=== PATIENT | female | born 1950 | race Caucasian/White ===

== ENCOUNTER 2016-10-01 02:36 | Emergency (ER) | payer OTHER ==
[~2016-10-01] VITALS: Ht 165.1 cm; Wt 58.5 kg
[~2016-10-01 02:36] MED LIST: HYDCR1 TD
[2016-10-01 02:42] VITALS: TEMP 36.5; Ht 165.1 cm; Wt 58.5 kg
--- NOTE | 2016-10-01 03:41 | EMERGENCY ROOM VISIT NOTE ---
History Report prepared by Blossom: Jarrett Marcano Under the Supervision of: Dr. Gladys Pittman D.O. First contact with patient: 03:11 Chief Complaint: SKIN PROBLEM Stated Complaint: POISON History of Present Illness The patient is a 66 year old female who presents to the Emergency Room with complaints of a worsening skin rash on her bilateral arms and neck that began last week. She rates her current pain a 10/10 in severity. She believes that it could be poison beatriz. At this time, she was digging in her garden when the rash began. She has been using calamine lotion with no relief. She states that it is worsening. It has spread onto her neck. She has not been taking Benadryl. She denies any shortness of breath. Source of History: patient Onset: 1 week ago Position: arm (bilateral) Symptom Intensity: moderate Quality: other (Rash) Timing: worsening Associated Symptoms: No SOB Note: She has associated pain with the rash. It also has spread to her neck and behind her ears. Review of Systems See HPI for pertinent positives & negatives. A total of 10 systems reviewed and were otherwise negative. Past Medical & Surgical Medical Problems: (1) Hyperlipidemia Family History Omitted secondary to age. Social History Smoking Status: Never Smoker Smokeless Tobacco Use: No Alcohol Use: none Drug Use: none Marital Status: Housing Status: lives with significant other Occupation Status: unemployed Current/Historical Medications Scheduled PRN Meclizine Hcl (Meclizine Hcl), 25 MG PO HS PRN for UNDECIDED Naproxen (Naproxen), 1 TAB PO BID PRN for Pain Naproxen (Aleve), 440 MG PO Q12 PRN for Pain Promethazine Hcl (Phenergan), 25 MG PO HS PRN for Nausea Allergies Coded Allergies: Codeine (Verified Allergy, Intermediate, N/V, 06/09/14) Penicillins (Verified Allergy, Unknown, UNKNOWN, 06/09/14) Physical Exam Vital Signs Date Time Temp Pulse Resp B/P (MAP) Pulse Ox O2 Delivery O2 Flow Rate FiO2 10/01/16 04:18 63 20 104/73 96 10/01/16 02:42 36.5 67 20 110/64 95 Room Air Physical Exam HEENT: Head - normocephalic and atraumatic Pupils are equal, round, and reactive to light. Extraocular eye muscles are intact, and sclera are anicteric. Nose - moist nasal mucosa without discharge. Mouth - moist buccal mucosa. Oropharynx is nonerythematous and there is no tonsillar exudate or edema noted. Neck: Supple; no cervical lymphadenopathy. There were some pustules on the lateral and posterior aspect of the neck consistent with rhuse dermatitis. Heart: Regular rate and rhythm. There is a normal S1 and S2 with no murmurs, clicks, or gallops appreciated. Lungs: Clear to auscultation bilaterally with no wheezes, rales, or rhonchi. Abdomen: Soft, completely nontender, nondistended, with good bowel sounds. There are no palpable pulsatile masses or hepatosplenomegaly. There is no guarding, rigidity, or rebound noted. Extremities: No evidence of cyanosis, clubbing, or edema. There are easily palpable peripheral pulses. Skin: warm and dry with good turgor. Pustules behind both ears, on the neck, and bilateral ventral aspects of the upper extremities consistent with poison beatriz. Medical Decision & Procedures Medications Administered Medications (Trade) Dose Ordered Sig/Olinda Route Start Time Stop Time Status Last Admin Dose Admin Dexamethasone Sodium Phosphate (Decadron Inj) 10 mg NOW ONCE IM 10/01/16 03:45 10/01/16 03:46 DC 10/01/16 04:03 10 MG Diphenhydramine HCl (Benadryl Cap) 25 mg NOW ONCE PO 10/01/16 03:45 10/01/16 03:46 DC 10/01/16 04:02 25 MG Procedure Benadryl Cap 25 mg PO Decadron Inj 10 mg IM ED Course 0311: Past medical records reviewed. The patient was evaluated in room B12. A complete history and physical exam was performed. 0345: Ordered Benadryl Cap 25 mg PO, Decadron Inj 10 mg IM 0420: Upon reevaluation, the patient is resting. I discussed findings and results with her. She verbalized agreement of the treatment plan. She was discharged home. Medical Decision The patient is a 66 year old female who presents to the ED with a skin rash. Differential diagnosis includes allergic reaction, dermatitis, rhus dermatitis, and urticaria. I attest that I have personally reviewed the patient's current medication list. Patient was found to have normal blood pressure on screening and does not require follow-up. On physical exam, the patient has evidence of poison beatriz on her arms and about her neck. She was prescribed a tapering dose of prednisone but was not taking it correctly. She was given a dose of Decadron here in the emergency department as an IM injection. She will then start taking the prednisone in the tapering fashion that was directed. We spent some time talking about how poison beatriz spreads. Impression Primary Impression: Poison beatriz dermatitis Scribe Attestation The scribe's documentation has been prepared under my direction and personally reviewed by me in its entirety. I confirm that the note above accurately reflects all work, treatment, procedures, and medical decision making performed by me. Departure Information Dispostion Home / Self-Care Referrals Fady James M.D. (PCP) Forms HOME CARE DOCUMENTATION FORM, IMPORTANT VISIT INFORMATION, WORK / SCHOOL INSTRUCTIONS Patient Instructions My [facility], Poison Beatriz [place] [facility] Additional Instructions Limit exposure to leaves of poison beatriz plants. Benadryl - 25mg every 6 hours Take steroids as directed.
[2016-10-01] MEDS ORDERED: DEXAMETHASONE SOD INJ 10 MG/ML VIAL IM ONE (03:45)
[2016-10-01] MEDS ORDERED: MECL1TAB42 PO (03:47)
[2016-10-01] MEDS ORDERED: NAPR375T3 PO (03:48)
[2016-10-01] MEDS ORDERED: PROM25TA9 PO (03:49)
[2016-10-01] MEDS ORDERED: NAPR1TAB9 PO (03:50)
[2016-10-01 04:18] VITALS: BP 104/73; PULSE 63; O2SAT 96
== END 2016-10-01 04:19 | disposition home or self-care (01) ==
LOC: C.EDB 02:37
DX: L23.7 Allergic contact dermatitis due to plants, except food (principal); E78.5 Hyperlipidemia, unspecified

== ENCOUNTER → 2017-05-06 | Outpatient (CLI) | payer OTHER ==
[~2017-05-06] MED LIST changes: -HYDCR1 TD; +MECL1TAB42 PO; +NAPR-1221 PO; +NAPR1TAB9 PO; +PROM25TA9 PO
--- NOTE | 2017-05-06 14:59 | MAMMOGRAPHY REPORT ---
BILATERAL DIGITAL SCREENING MAMMOGRAM TOMOSYNTHESIS WITH CAD: 05/06/2017 CLINICAL HISTORY: Routine screening. TECHNIQUE: Breast tomosynthesis in addition to standard 2D mammography was performed. Current study was also evaluated with a Computer Aided Detection (CAD) system. COMPARISON: Comparison is made to exams dated: 12/19/2015 mammogram, 12/28/2013 mammogram, 03/30/2012 mammogram - [facility], 11/21/2008, and 06/28/2007. BREAST COMPOSITION: There are scattered areas of fibroglandular density in both breasts. FINDINGS: No suspicious masses, calcifications, or areas of architectural distortion are noted in ei ther breast. There has been no significant interval change compared to prior exams. Benign-appearing mass in the right upper outer quadrant and asymmetry in the left lateral breast are stable compared to multiple prior exams. IMPRESSION: ACR BI-RADS CATEGORY 2: BENIGN There is no mammographic evidence of malignancy. A 1 year screening mammogram is recommended. The pa tient will receive written notification of the results. Approximately 10% of breast cancers are not detected with mammography. A negative mammographic report should not delay biopsy if a clinically suggestive mass is present. Kareen Chavarria M.D. ah/:05/06/2017 12:22:00 Taxation Economist: Cayla LOUISE(R)(M), [facility] letter sent: Normal 1/2 BI-RADS Code: ACR BI-RADS Category 2: Benign
== END | disposition home or self-care (01) ==
LOC: C.MAMM 09:15
PROVIDERS: ATTEND Internal Medicine
DX: Z12.31 Encounter for screening mammogram for malignant neoplasm of breast (principal)

== ENCOUNTER 2017-07-19 13:32 | Emergency (ER) | payer OTHER ==
[~2017-07-19] VITALS: Ht 165.1 cm; Wt 58.0 kg
[2017-07-19 13:46] VITALS: TEMP 36.7; Ht 165.1 cm; Wt 58.0 kg
[2017-07-19] MEDS ORDERED: SODIUM CHLORIDE 0.9% 1000ML 1,000 ML IV STA (13:57)
[2017-07-19 14:20] LABS: BASO % 0.4 %; BASO ABS # 0.03 K/uL (0-0.2); EOS % 1.2 %; HEMATOCRIT 41.4 % (37-47); HEMOGLOBIN 14.2 g/dL (12.0-16.0); IG# 0.02 K/uL (0.00-0.02); LYMPH % 26.4 %; LYMPH ABS # 2.26 K/uL (1.2-3.4); MEAN CELL VOLUME 89.2 fL (80-100); MEAN CORPUSCULAR HEMOGLOBIN 30.6 pg (25-34); MEAN CORPUSCULAR HGB CONC 34.3 g/dl (32-36); MEAN PLATELET VOLUME 9.2 fL (7.4-10.4); MONO % 6.9 %; MONO ABS # 0.59 K/uL (0.11-0.59); NEUT % 64.9 %; NEUT ABS # 5.57 K/uL (1.4-6.5); PLATELET COUNT 215 K/uL (130-400); RED CELL DISTRIBUTION WIDTH CV 12.1 % (11.5-14.5); RED CELL DISTRIBUTION WIDTH SD 38.9 fL (36.4-46.3); WHITE BLOOD COUNT 8.57 K/uL (4.8-10.8)
[2017-07-19] MEDS ORDERED: NEOMYCIN/POLYMYX/HYDROCORT OT SOLN 10 ML BTL OT ONE (14:30)
[2017-07-19 14:35] LABS: ALBUMIN 3.8 gm/dl (3.4-5.0); CALCIUM 8.8 mg/dl (8.5-10.1); CREATININE 0.66 mg/dl (0.60-1.20); POTASSIUM 3.9 mmol/L (3.5-5.1)
[2017-07-19 14:38] LABS: TOTAL PROTEIN 7.3 gm/dl (6.4-8.2)
[2017-07-19] MEDS ORDERED: OPTIRAY 320 IV PRN (14:45)
--- NOTE | 2017-07-19 15:52 | DIAGNOSTIC IMAGING REPORT ---
ABD/PELVIS IV CONTRAST ONLY CT DOSE: 269.68 mGy.cm HISTORY: Pain lower abd pain TECHNIQUE: Multiaxial CT images of the abdomen and pelvis were performed following the use of intravenous contrast. A dose lowering technique was utilized adhering to the principles of ALARA. COMPARISON STUDY: None. FINDINGS: The lung bases are clear. The liver, spleen, gallbladder, pancreas, kidneys, and adrenal glands are within normal limits. No bowel wall thickening or obstruction. The pelvic organs are unremarkable. No suspicious lytic or blastic osseous lesions. 1 cm right renal cyst. No evidence for hydronephrosis. Nonobstructive bowel pattern. Possible mild wall thickening versus technical artifact of the cecum. Normal appendix. Bilateral ovarian cysts. These measure 2.6 cm on the left and 2.0 cm on the right. Bladder is midline. There are no contained calcifications. IMPRESSION: 1. Bilateral ovarian cysts. 2. These are considered abnormal for age 3. Mild wall thickening versus technical artifact due to incomplete distention of the cecum. Colonoscopy is suggested. The above report was generated using voice recognition software. It may contain grammatical, syntax or spelling errors. Electronically signed by: Spencer Schaefer M.D. 07/19/2017 3:50 PM Dictated Date/Time: 07/19/2017 3:38 PM
[2017-07-19 17:01] VITALS: BP 129/78; PULSE 75; O2SAT 98
--- NOTE | 2017-07-19 17:59 | EMERGENCY ROOM VISIT NOTE ---
History Report prepared by Blossom: Epifanio Orellana Under the Supervision of: Dr. Ranjan Pierre M.D. First contact with patient: 13:57 Chief Complaint: DIARRHEA Stated Complaint: PROBLEMS WITH BOWELS AND LEGS Nursing Triage Summary: Patient reports diarrhea for the past 3 weeks. "I have a family history of colon cancer so I am just worried it's something more severe. I have also been having leg cramps but worsened yesterday." Denies abdominal pain. History of Present Illness The patient is a 66 year old female who presents to the Emergency Room with complaints of persistent diarrhea, which she has been experiencing for the past 3 weeks. The patient states that her diarrhea has actually improved as she used to have 5-6 bouts per day, and is only having 2-3 now. She describes the diarrhea as "very loose" and denies any melena. She is not having any abdominal pain. The patient notes that she cannot control her bowel movements, and needs to go immediately when the urge arouses. The patient denies any recent travel, antibiotic use, or unusual food intake. She has not noticed anything that improves/worsens her symptoms. She does note that her ears have been bothering her and she has had some discharge from both sides but the right is worse. This is been going on for many weeks. There has not been any associated LOC, headache, fevers, chills, diaphoresis, visual changes, neck pain, chest pain, breathing difficulties, nausea, abdominal pain, back pain, urinary symptoms, numbness, weakness, lymphadenopathy, rash, or other complaints. 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 A total of ten systems were reviewed and were otherwise negative. Past Medical & Surgical Medical Problems: (1) Hyperlipidemia Family History Cancer Heart disease Lung disease Social History Smoking Status: Never Smoker Alcohol Use: none Drug Use: none Marital Status: Housing Status: lives with significant other Occupation Status: unemployed Current/Historical Medications No Active Prescriptions or Reported Meds Allergies Coded Allergies: Penicillins (Verified Allergy, Unknown, UNKNOWN, 07/19/17) Codeine (Verified Adverse Reaction, Intermediate, N/V, 07/19/17) Physical Exam Vital Signs Date Time Temp Pulse Resp B/P (MAP) Pulse Ox O2 Delivery O2 Flow Rate FiO2 07/19/17 17:01 75 16 129/78 98 07/19/17 15:14 77 18 125/68 97 Room Air 07/19/17 14:11 76 07/19/17 13:46 36.7 94 16 104/71 96 Room Air Physical Exam GENERAL: Awake, alert, well-appearing, in no distress HENT: Normocephalic, atraumatic. Oropharynx unremarkable. Examination of the ears revealed normal pinna bilaterally. Mastoids are normal. She has some discharge and swelling noted within the canals bilaterally. I could not clearly see the TM on the right due to swelling and debris. This debris and swelling was present on the left but much less. No signs of otitis media. Clinically looks like an otitis externa although not overly erythematous. EYES: Normal conjunctiva. Sclera non-icteric. NECK: Supple. No nuchal rigidity. FROM. No masses. RESPIRATORY: Clear to auscultation. No wheezes. No rales. Normal respiratory effort. CARDIAC: Normal rate. Normal rhythm. No murmurs. No rubs. Extremities warm and well perfused. Pulses equal. No JVD. GI: Soft, non-distended. Left lower quadrant and right lower quadrant tenderness to palpation. No rebound or guarding. No masses. RECTAL: Deferred. MUSCULOSKELETAL: Atraumatic. Chest examination reveals no tenderness. The back is symmetrical on inspection without obvious abnormality. There is no CVA tenderness to palpation. No joint edema. LOWER EXTREMITIES: Calves are equal size bilaterally and non-tender. No edema. No discoloration. NEURO: Normal sensorium. No sensory or motor deficits noted. SKIN: No rash or jaundice noted. Medical Decision & Procedures ER Provider Diagnostic Interpretation: Radiology results as stated below per my review and radiologist interpretation: ABD/PELVIS IV CONTRAST ONLY CT DOSE: 269.68 mGy.cm HISTORY: Pain lower abd pain TECHNIQUE: Multiaxial CT images of the abdomen and pelvis were performed following the use of intravenous contrast. A dose lowering technique was utilized adhering to the principles of ALARA. COMPARISON STUDY: None. FINDINGS: The lung bases are clear. The liver, spleen, gallbladder, pancreas, kidneys, and adrenal glands are within normal limits. No bowel wall thickening or obstruction. The pelvic organs are unremarkable. No suspicious lytic or blastic osseous lesions. 1 cm right renal cyst. No evidence for hydronephrosis. Nonobstructive bowel pattern. Possible mild wall thickening versus technical artifact of the cecum. Normal appendix. Bilateral ovarian cysts. These measure 2.6 cm on the left and 2.0 cm on the right. Bladder is midline. There are no contained calcifications. IMPRESSION: 1. Bilateral ovarian cysts. 2. These are considered abnormal for age 3. Mild wall thickening versus technical artifact due to incomplete distention of the cecum. Colonoscopy is suggested. The above report was generated using voice recognition software. It may contain grammatical, syntax or spelling errors. Electronically signed by: Spencer Schaefer M.D. 07/19/2017 3:50 PM Dictated Date/Time: 07/19/2017 3:38 PM Laboratory Results 07/19/17 14:03 Red Blood Count 4.64, Mean Corpuscular Volume 89.2, Mean Corpuscular Hemoglobin 30.6, Mean Corpuscular Hemoglobin Concent 34.3, Mean Platelet Volume 9.2, Neutrophils (%) (Auto) 64.9, Lymphocytes (%) (Auto) 26.4, Monocytes (%) (Auto) 6.9, Eosinophils (%) (Auto) 1.2, Basophils (%) (Auto) 0.4, Neutrophils # (Auto) 5.57, Lymphocytes # (Auto) 2.26, Monocytes # (Auto) 0.59, Eosinophils # (Auto) 0.10, Basophils # (Auto) 0.03 07/19/17 14:03 Test 07/19/17 14:03 07/19/17 14:06 White Blood Count 8.57 K/uL (4.8-10.8) Red Blood Count 4.64 M/uL (4.2-5.4) Hemoglobin 14.2 g/dL (12.0-16.0) Hematocrit 41.4 % (37-47) Mean Corpuscular Volume 89.2 fL (80-100) Mean Corpuscular Hemoglobin 30.6 pg (25-34) Mean Corpuscular Hemoglobin Concent 34.3 g/dl (32-36) Platelet Count 215 K/uL (130-400) Mean Platelet Volume 9.2 fL (7.4-10.4) Neutrophils (%) (Auto) 64.9 % Lymphocytes (%) (Auto) 26.4 % Monocytes (%) (Auto) 6.9 % Eosinophils (%) (Auto) 1.2 % Basophils (%) (Auto) 0.4 % Neutrophils # (Auto) 5.57 K/uL (1.4-6.5) Lymphocytes # (Auto) 2.26 K/uL (1.2-3.4) Monocytes # (Auto) 0.59 K/uL (0.11-0.59) Eosinophils # (Auto) 0.10 K/uL (0-0.5) Basophils # (Auto) 0.03 K/uL (0-0.2) RDW Standard Deviation 38.9 fL (36.4-46.3) RDW Coefficient of Variation 12.1 % (11.5-14.5) Immature Granulocyte % (Auto) 0.2 % Immature Granulocyte # (Auto) 0.02 K/uL (0.00-0.02) Anion Gap 5.0 mmol/L (3-11) Est Creatinine Clear Calc Drug Dose 76.5 ml/min Estimated GFR () 107.4 Estimated GFR (Non- 92.7 BUN/Creatinine Ratio 19.8 (10-20) Calcium Level 8.8 mg/dl (8.5-10.1) Total Bilirubin 0.6 mg/dl (0.2-1) Direct Bilirubin 0.1 mg/dl (0-0.2) Aspartate Amino Transf (AST/SGOT) 11 U/L (15-37) Alanine Aminotransferase (ALT/SGPT) 21 U/L (12-78) Alkaline Phosphatase 114 U/L (45-117) Total Protein 7.3 gm/dl (6.4-8.2) Albumin 3.8 gm/dl (3.4-5.0) Lipase 97 U/L (73-393) Urine Color YELLOW Urine Appearance CLEAR (CLEAR) Urine pH 5.5 (4.5-7.5) Urine Specific [place] 1.020 (1.000-1.030) Urine Protein NEG (NEG) Urine Glucose (UA) NEG (NEG) Urine Ketones NEG (NEG) Urine Occult Blood NEG (NEG) Urine Nitrite NEG (NEG) Urine Bilirubin NEG (NEG) Urine Urobilinogen NEG (NEG) Urine Leukocyte Esterase MODERATE (NEG) Urine WBC (Auto) 5-10 /hpf (0-5) Urine RBC (Auto) 0-4 /hpf (0-4) Urine Hyaline Casts (Auto) 1-5 /lpf (0-5) Urine Epithelial Cells (Auto) >30 /lpf (0-5) Urine Bacteria (Auto) NEG (NEG) Laboratory results reviewed by me Medications Administered Medications (Trade) Dose Ordered Sig/Olinda Route Start Time Stop Time Status Last Admin Dose Admin Sodium Chloride 1,000 ml @ 125 mls/hr Q8H STAT IV 07/19/17 13:57 07/19/17 21:56 07/19/17 14:05 125 MLS/HR Neomycin/ Polymyxin/ Hydrocortisone (Cortisporin Otic Soln) 3 drops NOW ONCE OT 07/19/17 14:30 07/19/17 14:31 DC 07/19/17 14:54 3 DROPS ED Course 1357: Ordered Sodium Chloride 1000 mL @ 125 mL/hr IV. 1416: The patient was evaluated in room C8. A complete history and physical exam was performed. 1430: Ordered Neomycin/Polymyxin/Hydrocortisone 3 drops OT. 1632: I reevaluated the patient. Discussed results and discharge instructions: She verbalized understanding and agreement. She will follow-up with her PCP in the outpatient setting. The patient is ready for discharge. Medical Decision Prior records/ancillary studies reviewed. Triage Nursing notes reviewed and agree them. The patient's history was concerning for diarrhea. Differential diagnosis: Etiologies such as colitis, infectious diarrhea, C. difficile infection, otitis media, otitis externa, appendicitis, diverticulitis, PUD, biliary pathology, UTI, pancreatitis, obstruction, mesenteric ischemia, aortic pathology, infections, inflammatory bowel disease, renal colic, malignancy as well as others were entertained. Physical examination findings: As above. Benign abdomen but some lower tenderness. Patient also has an otitis externa. ER treatment provided: Saline hydration On reassessment the patient felt better. Diagnostics interpreted by me: The labs revealed an unremarkable CBC and chemistry panel. The patient was unable to give a stool specimen. Imaging studies: CT scan as above. Questionable cecal inflammatory change versus under distention. Bilateral ovarian cyst noted. The patient was counseled and told for follow-up. By the evaluation outlined above emergent etiologies such as appendicitis, diverticulitis, PUD, biliary pathology, UTI, pancreatitis, obstruction, mesenteric ischemia, aortic pathology, infections, severe inflammatory bowel disease, renal colic, as well as others were deemed relatively unlikely. The patient was informed about the findings as listed above. All questions were answered and she was pleased with the treatment. Return instructions were outlined and the patient was discharged in stable condition. Outpatient prescription management: Cortisporin otic given in the ER. She will use this for drops 3 times daily until follow-up with her PCP Referral: The patient was referred back to their primary care physician for follow-up in 2 to 3 days for a recheck of the current condition and to discuss [employer], GI, and ENT referral. The patient was called and notified for clarification regarding the Cortisporin Otic dose by the charge nurse. Medication Reconcilliation Current Medication List: was personally reviewed by me Blood Pressure Screening Patient's blood pressure: Normal blood pressure Impression Primary Impression: Diarrhea Additional Impressions: Lower abdominal pain possible colitis Bilateral ovarian cysts Otitis externa Scribe Attestation The scribe's documentation has been prepared under my direction and personally reviewed by me in its entirety. I confirm that the note above accurately reflects all work, treatment, procedures, and medical decision making performed by me. Departure Information Dispostion Home / Self-Care Prescriptions No Active Prescriptions or Reported Meds Referrals Fady James M.D. (PCP) Forms HOME CARE DOCUMENTATION FORM, IMPORTANT VISIT INFORMATION, WORK / SCHOOL INSTRUCTIONS Patient Instructions My [facility] Additional Instructions Tylenol: Take 1000 mg every 6 hours as needed for pain. Do not take more than 3000 mg in a 24 hour period. Imodium: This is available [id number]. Start out with two pills then take one after each loose bowel movement. You can take a maximum of 8 in one day. Only used as needed. Stop if you have bloody stools. Rest and drink plenty of fluids. Follow-up with your primary physician this week as discussed. Outpatient stool testing is recommended as you are unable to provide a sample in the ER. A follow-up with ENT as necessary for your ears, follow-up with [employer] as necessary due to the ovarian cysts, and discuss referral to gastroenterology regarding the diarrhea and mild colon inflammation seen. Return to the ER for worsening abdominal pain, severe ear pain, vomiting, fevers , bloody stools, or as needed. Problem Qualifiers
== END 2017-07-19 17:02 | disposition home or self-care (01) ==
LOC: C.EDB 13:34 → C.EDC 17:02
DX: R19.7 Diarrhea, unspecified (principal); R10.30 Lower abdominal pain, unspecified; N83.201 Unspecified ovarian cyst, right side; N83.202 Unspecified ovarian cyst, left side; E78.5 Hyperlipidemia, unspecified; Z80.0 Family history of malignant neoplasm of digestive organs

== ENCOUNTER → 2017-07-25 | Outpatient (CLI) | payer OTHER | END | disposition home or self-care (01) | LOC: C.PAPS 15:31 | PROVIDERS: ATTEND Obstetrics & Gynecology | DX: Z12.4 Encounter for screening for malignant neoplasm of cervix (principal) ==

== ENCOUNTER → 2017-07-25 | Outpatient (CLI) | payer OTHER | END | disposition home or self-care (01) | LOC: C.LABBFT 08:25 | PROVIDERS: ATTEND Physician Assistant Medical | DX: R19.7 Diarrhea, unspecified (principal) ==